=== PATIENT | male | born 1980 | race African-American/Black ===

== ENCOUNTER 2021-08-06 03:40 | Emergency (ER) | payer MEDICAID ==
[~2021-08-06] VITALS: Ht 185.4 cm; Wt 95.3 kg
--- NOTE | 2021-08-06 03:40 | NUR ---
FELIZ MCCLELLAND. TAKEN TO CHAIR Thom
[2021-08-06 03:49] VITALS: BP 138/74
--- NOTE | 2021-08-06 03:51 | NUR ---
PATIENT BIB [place] [employer]. PATIENT EXAMINED BY DR. KENT. PATIENT MEDICALLY CLEARED AND RELEASED IN CUSTODY IN STABLE CONDITION. ORIGINAL PRE-BOOK FORM GIVEN TO OFFICER MARBELLA, #[id number].
== END 2021-08-06 03:51 ==
LOC: MED 03:40
DX: Z02.89 Encounter for other administrative examinations (principal); F17.210 Nicotine dependence, cigarettes, uncomplicated; F12.90 Cannabis use, unspecified, uncomplicated; F15.90 Other stimulant use, unspecified, uncomplicated
CPT/HCPCS: 99283